=== PATIENT | female | born 1960 | race Caucasian/White ===

== ENCOUNTER 2021-01-11 23:24 | Emergency (ER) | payer OTHER, SELFPAY ==
--- NOTE | 2021-01-11 23:25 | DI.RAD.S_ITS ---
PROCEDURE: XR CHEST 1V INDICATIONS: rapid heart rate TECHNIQUE: One view of the chest was acquired. COMPARISON: None. FINDINGS: Surgical changes and devices: None. Lungs and pleura: Lungs are clear. No pleural effusions or pneumothorax. Mediastinum: Mediastinal contours appear normal. Heart size is normal. Bones and chest wall: No suspicious bony lesions. Overlying soft tissues appear unremarkable. IMPRESSION: No acute cardiopulmonary disease process. Dictated by: Maryann Coates MD, PhD on 01/12/2021 at 8:14 Approved by: Maryann Coates MD, PhD on 01/12/2021 at 8:14
[2021-01-11 23:38] LABS: Add Manual Diff / Slide Review NO; Basophils Absolute Auto 200 /uL (0-100); Basophils Percent Auto 2.1 % (0-2); Eosinophils Absolute Auto 500 /uL (0-450); Eosinophils Percent Auto 4.8 % (2-4); Hematocrit 40.4 % (36-46); Lymphocytes Absolute Auto 3300 /uL (1100-4500); Lymphocytes Percent Auto 32.3 % (25-40); Mean Corpuscular HGB Conc 34.7 % (30-36); Mean Corpuscular Volume 92.2 fL (80-100); Monocytes Absolute Auto 700 /uL (0-900); Neutrophils Absolute Auto 5400 /uL (1500-7000); Neutrophils Percent Auto 53.8 % (50-75); Platelet Count 441 X10^3/uL (150-400); Red Blood Cell Count 4.38 X10^6/uL (4.0-5.2); Red Cell Distribution Width 13.6 % (11.6-14.8); White Blood Cell Count 10.1 X10^3/uL (4.5-11.0)
[2021-01-11] MEDS: SODIUM CHLORIDE 0.9% 1,000 ML 150 ML IV (23:45)
[2021-01-11 23:49] LABS: BUN Creatinine Ratio 26.6 (6-22); Blood Urea Nitrogen 17 mg/dL (7-17); Calcium 9.2 mg/dL (8.4-10.2); Carbon Dioxide 29 mmol/L (22-32); Chloride 100 mmol/L (98-107); Creatine Kinase 57 U/L (30-135); Estimated Glomerular Filt Rate > 60.0 mL/min (>60); Glucose 125 mg/dL (80-110); HEMOLYSIS 23 (0-50); Magnesium 1.7 mg/dL (1.6-2.3); Potassium 2.9 mmol/L (3.4-5.1); Sodium 138 mmol/L (137-145)
[2021-01-12] VITALS (11 sets, daily range): BP systolic 95–111; BP diastolic 62–75; PULSE 94–116; RESP 15–21; O2SAT 97–98
[2021-01-12 00:01] LABS: Troponin I < 0.012 ng/mL (0.01-0.034)
--- NOTE | 2021-01-12 00:07 | ED_ITS ---
HPI - Arrhythmia/Palpitations General Chief Complaint: Arrhythmia/Palpitations Stated Complaint: SVT Time Seen by Provider: 01/11/21 23:25 Source: patient and EMS Mode of arrival: EMS History of Present Illness HPI narrative: 60-year-old female nonsmoker with history of SVT and hypokalemia with relatively recent cervical surgery presents by EMS for evaluation of a rapid heart rate with chest pain and shortness of breath. On their arrival they found her to be in SVT and gave adenosine 6 mg which converted her to a normal sinus rhythm. She denies fever or chills. She denies change in medications or diet. She is a bit lightheaded but denies any significant dizziness. She has had no fever or chills. Related Data Allergies Allergy/AdvReac Type Severity Reaction Status Date / Time No Known Drug Allergies Allergy Verified 01/12/21 00:13 Review of Systems Review of Systems Narrative: GENERAL: Denies chills, fatigue, malaise, fever, sweats. HEENT: Denies sinus pain, ear pain, sore throat, difficulty swallowing, dizziness. RESPIRATORY: See HPI CARDIOVASCULAR: See HPI GASTROINTESTINAL: Denies nausea, vomiting, abdominal pain, diarrhea, constipation, melena. : Denies dysuria, frequency, incontinence, hematuria, urinary retention. MUSCULOSKELETAL: denies weakness, joint pain, or bony pain SKIN: Denies rash, skin lesions, or other NEUROLOGIC: Denies weakness, headache, numbness, change in speech, confusion, seizures, incoordination. PSYCHIATRIC: No concerning psychosocial issues. 12 point review of systems is negative except for those stated above Exam Narrative Exam Narrative: GENERAL: [60] year old patient appears stated age. Well- developed patient, in mild distress. HEAD: Atraumatic. Normocephalic. EYES: Pupils equal round and reactive. Extraocular motions intact. No scleral icterus. No injection or drainage. ENT: Nose without bleeding, purulent drainage. Throat without erythema, tonsillar hypertrophy or exudate. Airway patent. NECK: Trachea midline. Non tender CARDIOVASCULAR: Regular rate and rhythm without murmurs, gallops, or rubs. RESPIRATORY: Clear to auscultation. Breath sounds equal bilaterally. No wheezes, rales, or rhonchi. GASTROINTESTINAL: Abdomen soft, non-tender, nondistended. EXTREMITIES: No edema or joint tenderness. BACK: Nontender without deformity or crepitance. No flank tenderness. NEURO: AOx3. SKIN: No rash or erythema of visible areas Initial Vital Signs Initial Vital Signs: Vital Signs Pulse Rate 106 H 01/12/21 00:09 Respiratory Rate 18 01/12/21 00:09 Course Orders Ordered: ED Orders 01/11/21 23:25 XR chest 1V Stat EKG-12 Lead Stat 01/11/21 23:30 Basic Metabolic Panel Stat Complete Blood Count AUTO DIFF Stat Magnesium Stat Thyroid Stimulating Hormone Stat Troponin & CK Cardiac Panel Stat 01/12/21 02:25 Basic Metabolic Panel Stat Sodium Chloride (Normal Saline 0.9%) 1,000 mls @ 150 mls/hr IV CONT CHEKO Last Admin: 01/11/21 23:45 Dose: 150 mls/hr Documented by: MATHEUS POTASSIUM CHLORIDE IN WATER (Potassium Cl 10 Meq/100 Ml Saira) 10 meq in 100 mls @ 100 mls/hr IV Q1H CHEKO Stop: 01/12/21 04:14 Last Admin: 01/12/21 02:34 Dose: 100 mls/hr Documented by: Infusion: 01/12/21 02:30 Dose: 0 mls/hr Documented by: Admin: 01/12/21 01:27 Dose: 100 mls/hr Documented by: Infusion: 01/12/21 01:26 Dose: 0 mls/hr Documented by: Admin: 01/12/21 00:19 Dose: 100 mls/hr Documented by: SHELLEY Discontinued Medications Potassium Chloride (Potassium Chloride 20 Meq/15 Ml Udc) 40 meq PO NOW ONE Stop: 01/12/21 00:08 Last Admin: 01/12/21 00:19 Dose: 40 meq Documented by: SHELLEY Vital Signs Vital signs: Vital Signs - 8 hr 01/12/21 00:09 01/12/21 00:10 01/12/21 00:32 Pulse Rate 106 H 105 H 116 H Respiratory Rate 18 15 21 Blood Pressure 111/75 Pulse Oximetry 01/12/21 01:00 01/12/21 01:12 01/12/21 01:30 Pulse Rate 103 H 101 H 97 H Respiratory Rate 15 16 15 Blood Pressure 109/74 95/67 Pulse Oximetry 98 98 01/12/21 02:00 01/12/21 02:01 01/12/21 02:30 Pulse Rate 98 H 96 H 96 H Respiratory Rate 15 15 15 Blood Pressure 111/62 103/72 Pulse Oximetry 97 97 97 MDM - Arrhythmia/Palpitations Lab Data Result diagrams: 01/11/21 23:30 01/12/21 02:25 Labs: Lab Results 01/11/21 01/11/21 01/11/21 Range/Units 23:30 23:30 23:30 WBC 10.1 (4.5-11.0) X10^3/uL RBC 4.38 (4.0-5.2) X10^6/uL Hgb 14.0 (12.0-16.0) g/dL Hct 40.4 (36-46) % MCV 92.2 (80-100) fL MCH 32.0 (26-34) PG MCHC 34.7 (30-36) % RDW 13.6 (11.6-14.8) % Plt Count 441 H (150-400) X10^3/uL Neut % (Auto) 53.8 (50-75) % Lymph % (Auto) 32.3 (25-40) % [place] % (Auto) 7.0 (3-14) % Eos % (Auto) 4.8 H (2-4) % Baso % (Auto) 2.1 H (0-2) % Neut # (Auto) 5400 (7058-8340) /uL Lymph # (Auto) 3300 (2558-5721) /uL [place] # (Auto) 700 (0-900) /uL Eos # (Auto) 500 H (0-450) /uL Baso # (Auto) 200 H (0-100) /uL Sodium 138 (137-145) mmol/L Potassium 2.9 L (3.4-5.1) mmol/L Chloride 100 (98-107) mmol/L Carbon Dioxide 29 (22-32) mmol/L BUN 17 (7-17) mg/dL Creatinine 0.64 (0.52-1.04) mg/dL Estimated GFR > 60.0 (>60) mL/min BUN/Creatinine Ratio 26.6 H (6-22) Glucose 125 H (80-110) mg/dL Calcium 9.2 (8.4-10.2) mg/dL Magnesium 1.7 (1.6-2.3) mg/dL Total Creatine Kinase 57 (30-135) U/L CK-MB (CK-2) TNP CK-MB (CK-2) Rel Index TNP Troponin I < 0.012 (0.01-0.034) ng/mL TSH 1.92 (0.47-4.68) uIU/mL 01/12/21 Range/Units 02:25 WBC (4.5-11.0) X10^3/uL RBC (4.0-5.2) X10^6/uL Hgb (12.0-16.0) g/dL Hct (36-46) % MCV (80-100) fL MCH (26-34) PG MCHC (30-36) % RDW (11.6-14.8) % Plt Count (150-400) X10^3/uL Neut % (Auto) (50-75) % Lymph % (Auto) (25-40) % [place] % (Auto) (3-14) % Eos % (Auto) (2-4) % Baso % (Auto) (0-2) % Neut # (Auto) (8886-4996) /uL Lymph # (Auto) (9341-9931) /uL [place] # (Auto) (0-900) /uL Eos # (Auto) (0-450) /uL Baso # (Auto) (0-100) /uL Sodium 138 (137-145) mmol/L Potassium 4.6 D (3.4-5.1) mmol/L Chloride 106 (98-107) mmol/L Carbon Dioxide 25 (22-32) mmol/L BUN 16 (7-17) mg/dL Creatinine 0.60 (0.52-1.04) mg/dL Estimated GFR > 60.0 (>60) mL/min BUN/Creatinine Ratio 26.7 H (6-22) Glucose 115 H (80-110) mg/dL Calcium 8.7 (8.4-10.2) mg/dL Magnesium (1.6-2.3) mg/dL Total Creatine Kinase (30-135) U/L CK-MB (CK-2) CK-MB (CK-2) Rel Index Troponin I (0.01-0.034) ng/mL TSH (0.47-4.68) uIU/mL ECG Data Interpretation: EKG is normal sinus rhythm rate [93 ] and free of any signs of ischemia or ectopy. No ST segmental elevation or depression. No T wave inversions MDM Narrative Medical decision making narrative: Patient with history of SVT presents by EMS for evaluation of a relatively sudden onset of symptoms as noted above. She had resolution of SVT with adenosine. Evaluation notes hypokalemia which has been part of her history. She has remained in a sinus rhythm for the duration of her visit, potassium replacement notes improvement to 4.6. Patient resting comfortably and asymptomatic. Repeat EKG unremarkable. Return precautions given and questions answered to her apparent satisfaction. We discussed potassium supplementation versus dietary changes she would prefer to explore dietary options. Discharge Plan Departure Patient Disposition: Home Clinical Impression: Supraventricular tachycardia, Acute hypokalemia Instructions: Arrhythmias Activity Restrictions/Additional Instructions: *You have been diagnosed with [SVT, likely at least in part due to low potassium. Your potassium has been replaced, labs are otherwise unremarkable] *What to do: *Please continue to take your regular medications as directed. [ ] New medication prescriptions sent to your pharmacy: [ ] [ ] New medication written as a paper prescription [x ] No new medications given *Please follow up with your primary care provider in 2-3 days, call for an appointment. Let them know you were seen in the Emergency Department and that we ask that you be seen in follow up. We will electronically transmit a record of today's note if your PCP is in our system *If you do not have a primary care provider please contact the [facility] Resource line at [phone]. They will ask some questions about your medical history and help get you set up with a doctor in the community. *Return to Emergency Department if you should have any new, worsening or concerning symptoms, such as [fever greater than 101 F, shaking chills, worsenin g pain, persistent vomiting or other bothersome symptoms]
[2021-01-12] MEDS: POTASSIUM CHLORIDE 20 MEQ/15 ML UDC 40 MEQ PO (00:19)
[2021-01-12] MEDS: POTASSIUM CHLORIDE IN WATER 10 MEQ/100 ML PIGGYBACK 100 MEQ IV ×3 (00:19→02:34)
[2021-01-12 00:26] LABS: Thyroid Stimulating Hormone 1.92 uIU/mL (0.47-4.68)
[2021-01-12 02:40] LABS: BUN Creatinine Ratio 26.7 (6-22); Blood Urea Nitrogen 16 mg/dL (7-17); Calcium 8.7 mg/dL (8.4-10.2); Carbon Dioxide 25 mmol/L (22-32); Chloride 106 mmol/L (98-107); Estimated Glomerular Filt Rate > 60.0 mL/min (>60); Glucose 115 mg/dL (80-110); HEMOLYSIS < 15 (0-50); Potassium 4.6 mmol/L (3.4-5.1); Sodium 138 mmol/L (137-145)
--- NOTE | 2021-01-12 03:35 | PC.NURSE ---
Per Dr Cornelius, OK to stop IV potassium, pt ready for DC
== END 2021-01-12 03:28 | disposition home or self-care (01) ==
PROVIDERS: Emergency Provider Emergency Medicine
DX: I47.1 Supraventricular tachycardia (principal); E87.6 Hypokalemia
CPT/HCPCS: 36415; 71045; 80048; 82550; 83735; 84443; 84484; 85025; 93005; 96365; 96366; 99284